=== PATIENT | female | born 1985 | race African-American/Black ===

== ENCOUNTER 2019-11-27 23:10 | Inpatient (IN) ==
[2019-11-27] MEDS ORDERED: D50W SYRINGE ONE (23:17)
[2019-11-27] MEDS ORDERED: NARCAN IV ONE (23:19)
[2019-11-27] MEDS ORDERED: D50W SYRINGE IV ONE (23:20)
--- NOTE | 2019-11-27 23:22 | PROVIDER DOCUMENTATION ---
[id number] Abuse/Overdose - General Chief Complaint: Overdose Stated Complaint: OVERDOSE Time Seen by Provider: 11/27/19 23:18 Source: EMS Allergies/Adverse Reactions: Allergies Allergy/AdvReac Type Severity Reaction Status Date / Time No Known Allergies Allergy Verified 11/27/19 23:58 Home Medications: Home Medication List Medication Instructions Recorded Confirmed Last Taken Type NK [No Home Medications] 11/27/19 11/27/19 Unknown History - History of Present Illness-Drug/Alcohol Nature of Presenting Problem: Patient arrives by POV with unresponsiveness. Patient has history of heroin use. Review of Systems - Adult - REVIEW OF SYSTEMS - ADULT ROS:: limited per condition Constitutional: reports: see HPI Past History - Adult - PAST MEDICAL HISTORY-ADULT Review of Records: reports: Old Records Reviewed, Nursing Assessment Review, Medications Reviewed Physical Exam-General - CONSTITUTIONAL General Appearance: other (iniitally unresponsive, now responsive after 2mg IV Narcan, patient reports snorting heroin) - EYES Eyes: other (constricted pupils) - HEAD, EARS, NOSE, MOUTH & THROAT HENMT: moist mucous membranes - NECK Neck: supple - RESPIRATORY Respiratory: lungs clear, other (shallow respirations) - CARDIOVASCULAR Cardiovascular: regular rate, rhythm - GASTROINTESTINAL (ABDOMEN) Abdominal Exam: soft - LYMPHATIC Lymphatic: no adenopathy - MUSCULOSKELETAL Back Exam: normal inspection, no CVA tenderness Extremity: normal range of motion, non-tender - SKIN Integumentary: normal color, normal turgor, other (diaphoretic) - NEUROLOGIC Neurologic: other (nonfocal) - PSYCHIATRIC Psych/Mental Status: other (lethargic initially) Progress - PLAN OF CARE/RESULTS Progress/Plan/Lab Results: Vital Signs - 8 hr 11/27/19 23:10 Temperature 98.6 F Pulse Rate 98 H Respiratory Rate 10 L Blood Pressure 200/103 O2 Sat by Pulse Oximetry 86 L Laboratory Results - last 24 hr 11/27/19 11/27/19 11/27/19 23:10 23:20 23:20 WBC 16.52 H RBC 4.27 Hgb 14.5 Hct 42.3 MCV 99.1 H MCH 34.0 H MCHC 34.3 RDW Std Deviation 12.5 Plt Count 422 H MPV 9.1 Immature Gran % (Auto) 0.2 Neut % (Auto) 43.6 Lymph % (Auto) 44.5 Hamblen % (Auto) 6.2 Eos % (Auto) 4.9 Baso % (Auto) 0.6 Immature Gran # (Auto) 0.03 Neut # (Auto) 7.20 H Lymph # (Auto) 7.35 H Hamblen # (Auto) 1.03 H Eos # (Auto) 0.81 H Baso # (Auto) 0.10 Specimen Type ARTERIAL Sample Site R RADIAL pH 7.23 L pCO2 40 pO2 198 H HCO3 16.7 L Base Excess -10.2 L Oxyhemoglobin 88.4 L* ABG O2 Sat (Calculated) 17.8 ABG O2 Saturation 100.0 ABG Carboxyhemoglobin 10.80 H* ABG Methemoglobin 0.8 Kb Test YES A-a O2 Difference 465.0 Total Hemoglobin 14.0 Lactate 5.30 H* Blood Gas Modality AMBU BAG FiO2 % 100.0 Sodium Potassium Chloride Carbon Dioxide Anion Gap BUN Creatinine Estimated GFR/1.73 m2 BUN/Creatinine Ratio Glucose Calculated Osmolality Calcium Total Bilirubin AST ALT Alkaline Phosphatase Total Protein Albumin Globulin Albumin/Globulin Ratio Serum , Qual NEGATIVE Salicylates Acetaminophen Plasma/Serum Ethyl Alc 11/27/19 11/27/19 23:20 23:20 WBC RBC Hgb Hct MCV MCH MCHC RDW Std Deviation Plt Count MPV Immature Gran % (Auto) Neut % (Auto) Lymph % (Auto) Hamblen % (Auto) Eos % (Auto) Baso % (Auto) Immature Gran # (Auto) Neut # (Auto) Lymph # (Auto) Hamblen # (Auto) Eos # (Auto) Baso # (Auto) Specimen Type Sample Site pH pCO2 pO2 HCO3 Base Excess Oxyhemoglobin ABG O2 Sat (Calculated) ABG O2 Saturation ABG Carboxyhemoglobin ABG Methemoglobin Kb Test A-a O2 Difference Total Hemoglobin Lactate Blood Gas Modality FiO2 % Sodium 137 Potassium 4.5 Chloride 97 L Carbon Dioxide 21 L Anion Gap 19 BUN 9 Creatinine 1.1 H Estimated GFR/1.73 m2 57 BUN/Creatinine Ratio 8 Glucose 83 Calculated Osmolality 272 Calcium 9.8 Total Bilirubin 0.60 AST 47 H ALT 19 Alkaline Phosphatase 57 Total Protein 8.5 H Albumin 5.3 H Globulin 3.0 Albumin/Globulin Ratio 2.0 Serum , Qual Salicylates < 3.00 L Acetaminophen < 1.2 L Plasma/Serum Ethyl Alc 85 H Orders Category Date Time Status Admit - [facility] Routine AdmDCTranf 11/28/19 00:04 Active Cardiac Monitoring DIRECTED Care 11/27/19 23:20 Active FSBS/Accucheck Result NOW Care 11/27/19 23:18 Active Petersen Cath Insertion ORDERED Care 11/27/19 23:21 Active NEWS Score >or=5:Order NEWS Bundle S.O. NOW Care 11/27/19 23:54 Active Neurological Check RTQ1H Care 11/28/19 00:04 Active Resuscitation Status Routine Care 11/28/19 00:04 Ordered Saline Loc NOW Care 11/27/19 23:22 Active Vital Signs Order ROUTINE Care 11/28/19 00:04 Active Z-Document. for Tele Applied ORDERED Care 11/28/19 00:06 Active NPO Diet 11/28/19 00:05 Active ABG [RESP] Routine Lab 11/27/19 23:10 Completed ACETAMINOPHEN [TDM] Stat Lab 11/27/19 23:20 Completed ALCOHOL BLOOD Stat Lab 11/27/19 23:20 Completed CBC WITH ELECTRONIC DIFF [HEME] Stat Lab 11/27/19 23:20 Completed CMP [COMPREHENSIVE METABOLIC PANEL] [CHEM] Stat Lab 11/27/19 23:20 Completed HCG [ TEST-SERUM] [PREG] Stat Lab 11/27/19 23:20 Completed SALICYLATES [TDM] Stat Lab 11/27/19 23:20 Completed URINE DRUG SCREEN PL Stat Lab 11/27/19 23:30 Ordered 0.9% Sodium Chloride Inj [Ns] 500 ml Med 11/28/19 00:15 Ordered Naloxone [Narcan] 2 mg IV As Directed mls/hr Dextrose 50% Syringe [D50w Syringe] Med 11/27/19 23:17 Discontinued 50 ml .ROUTE .STK-MED ONE Dextrose 50% Syringe [D50w Syringe] Med 11/27/19 23:20 Discontinued 50 ml IV NOW ONE Naloxone [Narcan] Med 11/27/19 23:19 Discontinued 1 mg IV NOW ONE Oxygen Device Routine Oth 11/28/19 00:05 Active Pulse Oximetry Stat Oth 11/27/19 23:31 Active Telemetry [OM.EQ] Routine Oth 11/28/19 00:04 Active EKG [EKG] Stat Ther 11/27/19 23:21 Ordered Transfer/Admit Order [TRANSFER] Routine Transfer 11/28/19 00:06 Ordered Result Diagrams: 11/27/19 23:20 11/27/19 23:20 - REASSESSMENT Reassessment #1 Time Reassessed: 23:25 Status: improving Reassessment Comment: awake after IV Narcan but has slurred speech and confusion Reassessment #2 Time Reassessed: 00:05 Status: worsening Reassessment Comment: increasing drowsiness, narcan drip ordered - CONSULTS/PCP/HOSPITALIST Notification #1 *Consult/PCP/Hospitalist*: Dr. Larson Time Discussed: 00:10 Reason/Comments: transfer to [facility] ICU Consult Disposition: Admit Departure - Departure Date of Disposition Decision: 11/28/19 Time of Disposition Decision: 00:11 DIAGNOSIS: Heroin overdose Qualifiers: Encounter type: initial encounter Injury intent: undetermined intent Qualified Code(s): T40.1X4A - Poisoning by heroin, undetermined, initial encounter Disposition: ADMITTED INPATIENT 09 Certified Medical Emergency: Emergent Condition: Critical Referrals and Follow-Ups: None,PCP [Primary Care Provider] - - Critical Care Note This patient required my direct & personal management of CC.: Yes Total Time (mins): 55 Critical Care Statement: This patient required my direct personal management to treat or rule out processes, the absence of which, could potentiallly result in sudden, clinically significant life or limb threatening deterioration. Attestation - Physician/ YOGESH Attestation Patient care was provided by Advanced Practice Provider:: No The physician spent face to face time with patient:: Yes Advanced Practice Provider documentation review:: Supervising physician onsite and consulted in the evaluation and care of this patient. The physician did have a face to face encounter with the patient.
[2019-11-27 23:26] LABS: BE -10.2 mmoll (-3.0-3.0); BLOOD TYPE ARTERIAL; HCO3-(ACT) 16.7 mmoll (20.0-26.0); METHB 0.8 % (0.0-1.5); O2(CT) 17.8 mL/dL (15.0-23.0); PCO2(98.6) 40 mmHg (35-45); PO2(98.6) 198 mmHg (60-100); SAMPLE BLOOD; pH(98.6) 7.23 (7.35-7.45)
[2019-11-27 23:31] LABS: ALLEN TEST YES; MODALITY AMBU BAG; O2HB 88.4 % (95.0-99.0)
[2019-11-27 23:34] LABS: BASO% 0.6 % (0.0-0.8); EOS# 0.81 X1000 (0.0-0.7); EOS% 4.9 % (0.0-10.0); HEMATOCRIT 42.3 % (37.0-47.0); HEMOGLOBIN 14.5 g/dL (12.0-16.0); IMM GRAN# 0.03 X1000 (0.0-0.04); IMM GRAN% 0.2 % (0.0-0.5); LYMPH# 7.35 X1000 (1.2-3.4); LYMPH% 44.5 % (20.5-51.1); MCHC 34.3 g/dL (33-37); MCV 99.1 FL (81-99); MONO# 1.03 X1000 (0.11-0.59); MONO% 6.2 % (1.7-9.3); MPV 9.1 FL (7.4-10.4); NEUT% 43.6 % (42.2-75.2); PLT 422 X1000 (130-400); RBC 4.27 XMIL (4.2-5.4); RDW 12.5 % (11.5-14.5); WBC 16.52 X1000 (4.8-10.8)
[2019-11-27 23:52] LABS: ACETAMINOPHEN < 1.2 ug/mL (10-30); AGAP 19; ALBUMIN 5.3 g/dL (3.5-5.0); ALKALINE PHOSPHATASE 57 U/L (32-104); BUN 9 mg/dL (8-22); CALCIUM 9.8 mg/dL (8.8-10.2); CHLORIDE 97 mmol/L (98-107); COSMO 272; CREATININE 1.1 mg/dL (0.5-0.9); ESTIMATED GFR 57; GLUCOSE 83 mg/dL (70-104); GOT 47 U/L (10-30); GPT 19 U/L (10-36); POTASSIUM 4.5 mmol/L (3.5-5.1); SALICYLATES < 3.00 mg/dL (3-10); SODIUM 137 mmol/L (136-145); TCO2 21 mmol/L (25-35); TOTAL PROTEIN 8.5 g/dL (6.3-8.3)
[2019-11-28] MEDS ORDERED: NARCAN 2 MG in NS 500 ML IV SCH (00:15)
[2019-11-28] MEDS ORDERED: NARCAN ONE (00:20)
[2019-11-28] MEDS ORDERED: NS 500 ML ONE (00:20)
[2019-11-28 00:30] LABS: INR 0.97; PROTIME 13.4 Seconds (11.0-16.0)
[2019-11-28] MEDS ORDERED: NS 1,000 ML IV ONE (00:37)
[2019-11-28] MEDS ORDERED: NARCAN IV ONE (01:00)
[2019-11-28 01:08] LABS: UR AMPHETAMINES QUAL NONE DETECTED (NONE DETECT); UR BARBITUATES QUAL NONE DETECTED (NONE DETECT); UR BENZODIAZEPIN QUAL NONE DETECTED (NONE DETECT); UR CANNABINOIDS QUAL NONE DETECTED (NONE DETECT); UR COCAINE QUAL PRESUMPTIVE POSITIVE (NONE DETECT); UR METHADONE QUAL NONE DETECTED (NONE DETECT); UR METHAMPHETAMINE QUAL NONE DETECTED (NONE DETECT); UR OPIATES QUAL PRESUMPTIVE POSITIVE (NONE DETECT); UR OXYCODONE QUAL NONE DETECTED (NONE DETECT); UR PCP QUAL NONE DETECTED (NONE DETECT); UR PROPOXYPHENE QUAL NONE DETECTED (NONE DETECT); UR TCA QUAL NONE DETECTED (NONE DETECT)
--- NOTE | 2019-11-28 01:54 | EKG Report ---
Test Performed on : 11/28/2019 00:49:17 AM Test Reason : pain Blood Pressure : / mmHG Vent. Rate : 087 BPM Atrial Rate : 087 BPM P-R Int : 166 ms QRS Dur : 098 ms QT Int : 412 ms P-R-T Axes : 059 061 028 degrees QTc Int : 495 ms Sinus rhythm. with marked sinus arrhythmia. Possible Left atrial enlargement Prolonged QT Abnormal ECG No previous ECGs available Confirmed by Nicolás HUMPHRIES, Kb Briseno ([id number]) on 11/30/2019 4:21:23 PM
[2019-11-28 02:02] LABS: CK-MB 4.72 ng/mL (0.0-5.0)
[2019-11-28 02:03] LABS: CK INDEX 1.6 (0.0-2.5)
[2019-11-28 03:35] LABS: URINE SOURCE CATH
[2019-11-28 03:43] LABS: BILIRUBIN URINE NEGATIVE (NEGATIVE); BLOOD URINE SMALL (NEGATIVE); COLOR YELLOW; GLUCOSE URINE NEGATIVE (NEGATIVE); KETONE URINE 20 mg/dL (NEGATIVE); LEUKOCYTES URINE NEGATIVE (NEGATIVE); NITRITE URINE NEGATIVE (NEGATIVE); PROTEIN URINE NEGATIVE (NEGATIVE); SP GRAVITY URINE 1.013; TURBIDITY URINE CLEAR (CLEAR); UROBILINOGEN URINE NORMAL (NORMAL)
[2019-11-28 03:44] LABS: UR EPITHELIAL CELLS <10 /HPF (<10); URINE BACTERIA NEGATIVE /HPF; URINE RBC <10 /HPF (<10); URINE WBC <10 /HPF (<10)
[2019-11-28] MEDS ORDERED: ZOFRAN IV PRN (04:49)
--- NOTE | 2019-11-28 05:24 | Diag Imaging Result Doc PS360 ---
EXAM: CHEST-1 VIEW HISTORY: sepsis TECHNIQUE: Single view COMPARISON: None. FINDINGS: The lungs are well expanded. The heart is not enlarged. The vessels are not distended. There are no infiltrates. No effusion identified. IMPRESSION: No pneumonia Electronically signed by Corona Duarte 11/28/2019 5:22 AM
--- NOTE | 2019-11-28 05:40 | HISTORY AND PHYSICAL ---
PRIMARY CARE PHYSICIAN: None. CHIEF COMPLAINT: Drug overdose. HISTORY OF PRESENTING ILLNESS: A 34-year-old female who initially had presented to [facility] with a heroin overdose and alcohol intoxication. Apparently, she was somnolent, and somewhat confused and slow to response. She was put on a Narcan drip and she had some improvement. Due to lack of ICU beds there, she was transferred to [facility] for further treatment. At the time of my examination, she is more alert. She denied any headache, fever, chills, chest pain, shortness of breath or any weight changes. States that she snorted what she thought was heroin but it was actually fentanyl. PAST MEDICAL HISTORY: Includes depression. PAST SURGICAL HISTORY: None. ALLERGIES: No known drug allergies. CURRENT MEDICATIONS: None. SOCIAL HISTORY: Ten pack years history of smoking. Admits to alcohol use. Admits to illicit drug use including cocaine and heroin. FAMILY HISTORY: No history of coronary artery disease. REVIEW OF SYSTEMS: Fourteen point review of system is as listed in HPI. Other systems negative. PHYSICAL EXAMINATION: GENERAL: Cooperative, friendly female. She is resting comfortably now. VITAL SIGNS: Temperature 98.6 degrees, pulse 98, respiration 14, blood pressure 118/64. HEENT: Atraumatic, normocephalic. Extraocular movements intact. PERRLA. NECK: No masses. CHEST: Clear to auscultation. CARDIOVASCULAR: Regular rate and rhythm. ABDOMEN: Soft. Positive bowel sounds. EXTREMITIES: No edema. NEUROLOGIC: She is awake, alert, oriented x3. GENITOURINARY: No bladder distention. SKIN: Warm. LABORATORIES AND STUDIES: Toxicology shows opiate positive, cocaine positive. WBC 16.52, hemoglobin 14.5, hematocrit 42.3, platelets 422,000. Blood gas with pH of 7.23. Sodium 137, potassium 4.5, chloride 97, CO2 is 21, BUN is 9, creatinine is 1.1, glucose is 83. ASSESSMENT: This is a 34-year-old female apparently had overdosed on heroin and was also alcohol intoxicated. She was initially seen at [facility] where she was started on IV Narcan drip. The patient was subsequently transferred to [facility] due to lack of ICU bed. 1. Drug overdose with heroin. 2. Alcohol intoxication. 3. Cocaine abuse. 4. Depression. PLAN: 1. The patient is admitted to ICU. 2. We will continue with Narcan drip and taper off slowly. 3. I counseled patient on alcohol and drug cessation. 4. We will put patient on DVT prophylaxis with SCD. 5. We will continue to follow, reassess and make further recommendation based on patient's clinical course. 6. Please note that the patient may need further evaluation by psychiatrist. cc: Soren Mansfield MD
[2019-11-28 15:10] LABS: ALLEN TEST NO; BE -2.9 mmoll (-3.0-3.0); BLOOD TYPE ARTERIAL; HCO3-(ACT) 22.6 mmoll (20.0-26.0); METHB 0.8 % (0.0-1.5); O2(CT) 16.8 mL/dL (15.0-23.0); O2HB 93.5 % (95.0-99.0); PCO2(98.6) 38 mmHg (35-45); PO2(98.6) 87 mmHg (60-100); SAMPLE BLOOD; SAO2 98.3 % (95.0-100.0); THB 12.7 g/dL (11.5-17.4); pH(98.6) 7.37 (7.35-7.45)
[2019-11-28 15:11] LABS: MODALITY ROOM AIR
--- NOTE | 2019-11-28 15:20 | DISCHARGE SUMMARY ---
ADMISSION DATE: 11/28/2019 DISCHARGE DATE: 11/28/2019 ADMISSION DIAGNOSIS: Heroin overdose. DISCHARGE DIAGNOSIS: Heroin overdose. Briefly, this is a 34-year-old female who is here for heroin overdose and alcohol intoxication. She was somnolent. She was placed on IV Narcan drip. She was at [facility] which does not have ICU and she was transferred here for monitoring. She started waking up. She did have a low pH, so I think we may need to repeat her gas. Her lactate was a bit on the high side. So in any case, the patient came in for evaluation. Her breathing is much better. She is mentating fine. She is asking to go home, so we will take out her Petersen, allow her to eat, make sure she can ambulate, and then I think she should be okay to go home. She was counseled on stopping this. She does not use IV drugs. She snorted heroin, which she snorted fentanyl in the past. I am going to repeat her ABG to make sure her pH is stable. She has mild elevation in her liver enzymes, so I will screen her for hepatitis due to high risk drug use even though it is not intravenous, but that again could be alcohol. DISCHARGE CONDITION: Stable. She will be discharged. Again, she was advised on cocaine use. cc: Horacio Carpenter MD MTDDerek
[2019-11-28 15:36] LABS: AGAP 15; ALB/GLOB RATIO 1.6; ALBUMIN 4.2 g/dL (3.5-5.0); ALKALINE PHOSPHATASE 49 U/L (32-104); BUN 8 mg/dL (8-22); CALCIUM 8.6 mg/dL (8.8-10.2); CHLORIDE 102 mmol/L (98-107); COSMO 272; CREATININE 0.8 mg/dL (0.5-0.9); ESTIMATED GFR > 60; GLUCOSE 63 mg/dL (70-104); GOT 38 U/L (10-30); GPT 17 U/L (10-36); POTASSIUM 4.3 mmol/L (3.5-5.1); SODIUM 138 mmol/L (136-145); TCO2 21 mmol/L (25-35); TOTAL BILIRUBIN 1.25 mg/dL (0.20-1.00); TOTAL PROTEIN 6.9 g/dL (6.3-8.3)
[2019-11-28 16:03] VITALS: BP 130/88
[2019-11-30 09:56] LABS: HEPATITIS PROFILE ACUTE SEE COMMENTS
== END 2019-11-28 17:15 | disposition home or self-care (01) | DRG 918 ==
LOC: P.ED 23:10 → ICU 11-28 00:40 → SUATTDRO 11-28 00:40
PROVIDERS: ATTEND Internal Medicine